=== PATIENT | male | born 1995 ===

== ENCOUNTER 2018-07-21 19:38 | Emergency (ER) | payer SELFPAY ==
[2018-07-21] MEDS ORDERED: Tdap Vaccine 0.5 ml Vial (10-64 yrs) IM ONE ×2 (21:41→23:06)
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
[2018-07-21] MEDS ORDERED: Piperacillin/Tazobact 3.375 GM in Sodium Chloride 0.9% 100 ML IVPB STA (22:56)
[2018-07-21] MEDS ORDERED: Piperacillin/Tazobact 3.375 gm Inj IVPB ONE (23:06)
[2018-07-21 23:39] VITALS: BP 121/69; PULSE 79; RESP 15; TEMP 98; O2SAT 100
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
== END 2018-07-21 23:39 | disposition home or self-care (01) ==
LOC: H.ER 19:38
DX: S01.512A Laceration without foreign body of oral cavity, initial encounter (principal); S09.12XA Laceration of muscle and tendon of head, initial encounter; V19.9XXA Pedal cyclist (driver) (passenger) injured in unspecified traffic accident, initial encounter; Y93.55 Activity, bike riding; Z23 Encounter for immunization
CPT/HCPCS: 13151; 70480; 90471; 90715; 99284; J2543